=== PATIENT | male | born 1995 | race African-American/Black ===

== ENCOUNTER 2021-07-12 18:38 | Emergency (ER) | payer OTHER, SELFPAY ==
[2021-07-12 18:42] VITALS: BP 125/78; PULSE 98; RESP 18; TEMP 36.5; O2SAT 97
[2021-07-12 19:38] VITALS: O2SAT 97
--- NOTE | 2021-07-12 21:05 | ED.GENADULT ---
HPI - General Adult General Chief complaint: Upper Respiratory Infection Stated complaint: r/o covid Time Seen by Provider: 07/12/21 20:58 History of Present Illness HPI narrative: Patient is a 26-year-old gentleman who presents the emergency department with chief complaint of needs Covid test. The patient states that he has had little bit of a runny nose and reports that his suggested that they come to the emergency department to be tested for Covid. Patient denies shortness of breath denies chest pain denies hypoxia. Related Data Home Medications Medication Instructions Recorded Confirmed No Home Medications 07/12/21 07/12/21 Allergies Allergy/AdvReac Type Severity Reaction Status Date / Time carrot Allergy Hives Verified 07/12/21 19:39 Review of Systems Review of Systems: A 10 system review of systems was completed on the patient and is negative except for what is stated in the HPI. Nursing and ancillary documentation was reviewed. PMFSH Social History Social History Gender identity (if verbalized by the patient): Male Exam Narrative: GENERAL: Well-appearing, well-nourished, and in no acute distress. HEAD: Normocephalic, atraumatic. EYES: PERRLA and EOMI. ENT: Nares clear, no rhinorrhea or epistaxis. Mucous membranes moist. NECK: Supple. CHEST: Clear to auscultation. No respiratory distress. HEART: Regular rate and rhythm. No murmur heard. Normal peripheral pulses. ABDOMEN: Soft, nontender, nondistended, normal active bowel sounds. EXTREMITIES: Normal range of motion. No edema. SKIN: Warm, dry, no rash. NEURO: No focal deficits. Alert and oriented x3. PSYCH: Normal mood and affect. Course Vital Signs Vital signs: Vital Signs Temperature 36.5 C 07/12/21 18:42 Pulse Rate 98 07/12/21 18:42 Respiratory Rate 18 07/12/21 18:42 Blood Pressure 125/78 07/12/21 18:42 Pulse Oximetry 97 07/12/21 18:42 Temperature 36.5 C 07/12/21 18:42 Pulse Rate 98 07/12/21 18:42 Respiratory Rate 18 07/12/21 18:42 Blood Pressure 125/78 07/12/21 18:42 Pulse Oximetry 97 07/12/21 19:38 Medical Decision Making Vital Signs Vital Signs: Vital Signs Temperature 36.5 C 07/12/21 18:42 Pulse Rate 98 07/12/21 18:42 Respiratory Rate 18 07/12/21 18:42 Blood Pressure 125/78 07/12/21 18:42 Pulse Oximetry 97 07/12/21 18:42 Temperature 36.5 C 07/12/21 18:42 Pulse Rate 98 07/12/21 18:42 Respiratory Rate 18 07/12/21 18:42 Blood Pressure 125/78 07/12/21 18:42 Pulse Oximetry 97 07/12/21 19:38 Discharge Plan Discharge Clinical Impression: Upper respiratory infection Qualifiers: URI type: unspecified URI Qualified Code(s): J06.9 - Acute upper respiratory infection, unspecified Patient Disposition: Home, Self-Care Condition: Stable Instructions: Antibiotic Form, Upper Respiratory Infection (ED) Additional Instructions: It is recommended that you self quarantine until the results of your Covid test Prescriptions: No Action No Home Medications RF: 0 Follow-up/Referrals: UNKNOWN,DOCTOR [Primary Care Provider] - Christophe Tee MD [Physician] - Time of Disposition: 21:08
[2021-07-12 21:16] VITALS: BP 123/83; PULSE 95; RESP 18; TEMP 37.2; O2SAT 95
[2021-07-13 18:30] LABS: SARS-CoV-2 RNA PCR Positive
== END 2021-07-12 21:36 | disposition home or self-care (01) ==
PROVIDERS: Emergency Provider Emergency Medicine
DX: U07.1 COVID-19 (principal)
CPT/HCPCS: 99283; C9803; U0003; U0005